=== PATIENT | male | born 1990 | race Caucasian/White ===

== ENCOUNTER 2020-09-12 11:37 | Emergency (ER) | payer BC ==
[~2020-09-12] VITALS: Ht 188 cm; Wt 109.1 kg
[2020-09-12 12:24] LABS: BASOPHILS % (AUTO) 0.6 % (0-1); EOSINOPHILS # (AUTO) 0.1 X10'3 (0-0.9); EOSINOPHILS % (AUTO) 0.7 % (0-6); HEMATOCRIT 48.2 % (42.0-52.0); HEMOGLOBIN 16.6 g/dl (14.0-17.9); LYMPHOCYTES # (AUTO) 1.5 X10'3 (1.1-4.8); LYMPHOCYTES % (AUTO) 19.3 % (21-51); MEAN CORPUSCULAR HEMOGLOBIN 29.9 PG (27.0-31.0); MEAN CORPUSCULAR HGB CONC 34.4 g/dL (33.0-36.5); MEAN CORPUSCULAR VOLUME 86.8 FL (78-98); MEAN PLATELET VOLUME 7.8 FL (7.4-10.4); MONOCYTES # (AUTO) 0.5 X10'3 (0-0.9); MONOCYTES % (AUTO) 6.7 % (2-12); NEUTROPHILS # (AUTO) 5.7 X10'3 (1.8-7.7); NEUTROPHILS % (AUTO) 72.7 % (42-75); PLATELET COUNT 216 X10'3 (140-440); RED BLOOD COUNT 5.55 X10'6 (4.70-6.10); RED CELL DISTRIBUTION WIDTH 12.9 % (11.5-14.5); WHITE BLOOD COUNT 7.9 X10'3 (4.5-11.0)
[2020-09-12 12:39] LABS: ALKALINE PHOSPHATASE 123 IU/L (46-116); BILIRUBIN,TOTAL 0.6 MG/DL (0.1-1.0); BLOOD UREA NITROGEN 13 MG/DL (7-18); CALCIUM 9.6 MG/DL (8.5-10.1); CHLORIDE 97 MMOL/L (99-107); LIPASE 172 U/L (73-393); TOTAL CARBON DIOXIDE 23.8 MMOL/L (24-32); TOTAL PROTEIN 8.1 G/DL (6.4-8.2); eGFR 88 ML/MIN
[2020-09-12 12:40] LABS: ANION GAP 13 (8-16); ASPARTATE AMINO TRANSFERASE 26 U/L (10-37); POTASSIUM 4.2 MMOL/L (3.5-5.1); SODIUM 134 MMOL/L (135-145)
--- NOTE | 2020-09-12 12:50 | NUR ---
lab called glucose 516, informed maicol johnson
[2020-09-12 12:53] LABS: ALANINE AMINOTRANSFERASE 65 U/L (12-78)
[2020-09-12 13:04] LABS: GLUCOSE 516 MG/DL (70-104)
[2020-09-12] MEDS ORDERED: insulin regular, human 10 units/0.1 ml syringe SQ ONE (13:20)
[2020-09-12] MEDS ORDERED: normal saline 1000ML IV soln IVB ONE (13:20)
[2020-09-12 15:03] LABS: CLARITY,URINE CLEAR (Clear); COLOR,URINE YELLOW (Yellow); GLUCOSE, URINE >=1000 mg/dl (Neg); KETONES,URINE >=80 mg/dl (Neg); LEUKOCYTE ESTERASE ,URINE NEGATIVE (Neg); NITRITES, URINE NEGATIVE (Neg); OCCULT BLOOD,URINE NEGATIVE (Neg); PROTEIN,URINE NEGATIVE (Neg); UROBILINOGEN,URINE 0.2 E.U/dL (0.2-1.0)
[2020-09-12] MEDS ORDERED: insulin regular, human U-100 3ml vial - multi-dose SQ ONE (15:05)
[2020-09-12 15:18] LABS: UA COLLECTION TYPE CLN CATCH MIDSTREAM
[2020-09-12 15:26] LABS: BACTERIA,URINE FEW /HPF (Neg); RBC,URINE 0-2 /HPF (0-2); SQUAMOUS EPITHELIAL CELL,UR FEW /LPF (FEW); WBC,URINE 0-4 /HPF (0-4)
[2020-09-12] MEDS ORDERED: METF500T PO (17:58)
[2020-09-12] MEDS ORDERED: NYST1000 PO (17:58)
[2020-09-12] MEDS ORDERED: MYC15CR TOP (17:58)
[2020-09-12] MEDS ORDERED: BLOO1EAC70 MC (18:19)
[2020-09-12 18:22] VITALS: BP 153/101
[2020-09-12 18:28] LABS: HEMOGLOBIN A1C 10.7 % (4.5-6.2)
== END 2020-09-12 18:26 | disposition home or self-care (01) ==
LOC: ER 11:38
DX: E11.9 Type 2 diabetes mellitus without complications (principal); B37.9 Candidiasis, unspecified; B35.6 Tinea cruris; Z79.899 Other long term (current) drug therapy
CPT/HCPCS: 36415; 80053; 81001; 82948; 83036; 83690; 85025; 96372; 99283; J7030; 96360; J1815